=== PATIENT | female | born 1985 | race Caucasian/White ===

== ENCOUNTER 2019-09-07 09:32 | Inpatient (IN) | payer OTHER ==
[~2019-09-07] VITALS: Ht 162.6 cm; Wt 92.0 kg
[2019-09-07 10:43] LABS: BASOPHILS % (AUTO) 0.9 % (0.0-2.0); EOSINOPHILS % (AUTO) 0.1 % (1.0-6.0); HEMATOCRIT 37.3 % (36-46); HEMOGLOBIN 12.1 g/dL (12.0-16.0); LYMPHOCYTES # (AUTO) 1.2 K/uL (1.0-4.8); LYMPHOCYTES % (AUTO) 12.3 % (22.0-44.0); MEAN CORPUSCULAR HEMOGLOBIN 25.9 pg (26.0-34.0); MEAN CORPUSCULAR HGB CONC 32.6 G/dL (31.0-37.0); MEAN CORPUSCULAR VOLUME 79 fL (80-100); MONOCYTES # (AUTO) 0.4 K/uL (0.1-1.0); MONOCYTES % (AUTO) 3.8 % (2.0-9.0); NEUTROPHILS # (AUTO) 8.2 K/uL (1.8-7.7); NEUTROPHILS % (AUTO) 82.9 % (40.0-70.0); PLATELET COUNT (AUTO) 406 K/uL (150-450); RED CELL DISTRIBUTION WIDTH 15.3 % (11.5-14.5)
[2019-09-07 10:53] LABS: ANION GAP 8 mmol/L (8-16); CALCIUM, TOTAL 9.7 mg/dL (8.8-10.5); CARBON DIOXIDE 28 mmol/L (22-29); CHLORIDE 101 mmol/L (98-107); CREATININE 0.73 mg/dL (0.60-1.30); GLOMERULAR FILTR. RATE CALC > 60 mL/min (>60); GLUCOSE,RANDOM 106 mg/dL (70-110); POTASSIUM 3.8 mmol/L (3.5-5.1); SODIUM SERUM 137 mmol/L (136-145); UREA NITROGEN, BLOOD 10 mg/dL (7-18)
[2019-09-07 11:04] LABS: ALANINE AMINOTRANSFERASE 7 U/L (12-78); ALBUMIN 3.6 g/dL (3.4-5.0); ALKALINE PHOSPHATASE 67 U/L (46-116); ASPARTATE AMINOTRANSFERASE 19 U/L (15-37); BILIRUBIN,TOTAL 0.5 mg/dL (0.1-1.0); HCG,QUANTITATIVE < 1 mIU/mL (0-6); TOTAL PROTEIN, SERUM 8.4 g/dL (6.4-8.2)
[2019-09-07] MEDS ORDERED: 0.9% SODIUM CHLORIDE 10 ML SYRINGE IVP PRN (11:30)
[2019-09-07] MEDS ORDERED: ONDANSETRON HCL 4 MG/2 ML VIAL IVP PRN (11:30)
[2019-09-07] MEDS ORDERED: ACETAMINOPHEN 325 MG TABLET PO PRN ×2 (11:30→13:45)
[2019-09-07 12:08] LABS: AMPHET/METH SCREEN,URINE POSITIVE (NEGATIVE); BARBITURATE SCREEN, URINE NEGATIVE (NEGATIVE); BENZODIAZEPINES SCREEN,URINE NEGATIVE (NEGATIVE); CANNABINOID SCREEN,URINE NEGATIVE (NEGATIVE); COCAINE SCREEN,URINE NEGATIVE (NEGATIVE); METHADONE SCREEN, URINE NEGATIVE (NEGATIVE); OPIATE SCREEN,URINE POSITIVE (NEGATIVE)
[2019-09-07 12:09] LABS: PHENCYCLIDINE SCREEN,URINE NEGATIVE (NEGATIVE)
[2019-09-07 12:42] VITALS: BP 100/51
[2019-09-07 12:45] VITALS: BP 100/51
[2019-09-07] MEDS ORDERED: CloNIDine HCL 0.1 MG TABLET PO PRN (13:45)
[2019-09-07] MEDS ORDERED: LOPERAMIDE HCL 2 MG/15 ML SUSPENSION UDCUP PO PRN (13:45)
[2019-09-07] MEDS ORDERED: IBUPROFEN 600 MG TABLET PO PRN (13:45)
[2019-09-07] MEDS ORDERED: HydrOXYzine PAMOATE 50 MG CAPSULE PO PRN (13:45)
[2019-09-07] MEDS ORDERED: LORazepam 1 MG TABLET PO PRN (13:45)
[2019-09-07] MEDS ORDERED: MAG HYDROX/AL HYDROX/SIMETH ES 30 ML SUSPENSION UDCUP PO PRN (13:45)
[2019-09-07] MEDS ORDERED: BACLOFEN 10 MG TABLET PO PRN (13:45)
[2019-09-07] MEDS ORDERED: PROMETHAZINE HCL 25 MG TABLET PO PRN (13:45)
[2019-09-07] MEDS ORDERED: DICYCLOMINE HCL 10 MG CAPSULE PO PRN (13:45)
[2019-09-07] MEDS ORDERED: TraZODone HCL 50 MG TABLET PO PRN (13:45)
[2019-09-07 15:30] VITALS: BP 106/53
[2019-09-07] MEDS: SODIUM CHLORIDE 0.45% 1,000 ML IV SCH (16:07)
[2019-09-07 20:16] VITALS: BP 122/72
[2019-09-07 23:48] VITALS: BP 115/71
[2019-09-08] VITALS (8 sets, daily range): BP systolic 98–152; BP diastolic 45–85
[2019-09-08] MEDS ORDERED: MAG HYDROX/AL HYDROX/SIMETH ES 30 ML SUSPENSION UDCUP PO PRN (04:00)
[2019-09-08] MEDS ORDERED: ZOLPIDEM TARTRATE 5 MG TABLET PO PRN (04:00)
[2019-09-08] MEDS ORDERED: CloNIDine HCL 0.1 MG TABLET PO PRN (04:00)
[2019-09-08] MEDS ORDERED: ONDANSETRON HCL 4 MG/2 ML VIAL IVP PRN (04:00)
[2019-09-08] MEDS ORDERED: ACETAMINOPHEN 325 MG TABLET PO PRN (04:00)
[2019-09-08] MEDS ORDERED: ALBUTEROL SULFATE 2.5 MG/0.5 ML NEB SOLUTION NEB PRN (04:00)
[2019-09-08] MEDS ORDERED: IPRATROPIUM BROMIDE 0.5 MG/2.5 ML NEB SOLUTION NEB PRN (04:00)
[2019-09-08] MEDS ORDERED: BISACODYL 10 MG RECTAL RECTAL SUPPOSITORY PR PRN (04:00)
[2019-09-08] MEDS ORDERED: MAGNESIUM HYDROXIDE SUSPENSION 30 ML UDCUP PO PRN (04:00)
[2019-09-08] MEDS ORDERED: VANCOMYCIN HCL 1 GM/D5% WATER 200 ML IV SCH (04:00)
[2019-09-08] MEDS ORDERED: MORPHINE SULFATE 2 MG/ML SYRINGE IVP PRN (04:00)
[2019-09-08] MEDS ORDERED: VANCOMYCIN HCL 1 GM/D5% WATER 200 ML IV ONE ×2 (05:00→07:00)
[2019-09-08] MEDS: SODIUM CHLORIDE 0.45% 1,000 ML IV SCH ×2 (05:11→16:24)
[2019-09-08] MEDS: CloNIDine HCL 0.1 MG TABLET PO SCH ×4 (06:00→23:02)
[2019-09-08] MEDS: DOCUSATE SODIUM 100 MG CAPSULE PO SCH ×2 (08:07→20:29)
[2019-09-08] MEDS: HEPARIN SODIUM,PORCINE 5,000 UNITS/ML VIAL SQ SCH ×2 (08:07→16:11)
[2019-09-08] MEDS: IBUPROFEN 600 MG TABLET PO PRN ×2 (08:07→20:31)
[2019-09-08 10:39] LABS: BASOPHILS % (AUTO) 0.5 % (0.0-2.0); EOSINOPHILS % (AUTO) 0.9 % (1.0-6.0); HEMATOCRIT 37.9 % (36-46); HEMOGLOBIN 12.5 g/dL (12.0-16.0); LYMPHOCYTES # (AUTO) 1.9 K/uL (1.0-4.8); MEAN CORPUSCULAR HEMOGLOBIN 26.3 pg (26.0-34.0); MEAN CORPUSCULAR VOLUME 80 fL (80-100); MONOCYTES # (AUTO) 0.6 K/uL (0.1-1.0); MONOCYTES % (AUTO) 7.2 % (2.0-9.0); NEUTROPHILS # (AUTO) 5.2 K/uL (1.8-7.7); NEUTROPHILS % (AUTO) 67.4 % (40.0-70.0); PLATELET COUNT (AUTO) 410 K/uL (150-450); RED BLOOD CELL COUNT(AUTO) 4.75 MIL/uL (4.00-5.20); RED CELL DISTRIBUTION WIDTH 15.1 % (11.5-14.5)
[2019-09-08 10:50] LABS: ALANINE AMINOTRANSFERASE 13 U/L (12-78); ALBUMIN 3.3 g/dL (3.4-5.0); ALKALINE PHOSPHATASE 60 U/L (46-116); ANION GAP 6 mmol/L (8-16); ASPARTATE AMINOTRANSFERASE 24 U/L (15-37); BILIRUBIN,TOTAL 0.4 mg/dL (0.1-1.0); CALCIUM, TOTAL 9.3 mg/dL (8.8-10.5); CARBON DIOXIDE 30 mmol/L (22-29); CHLORIDE 102 mmol/L (98-107); CREATININE 0.72 mg/dL (0.60-1.30); GLOMERULAR FILTR. RATE CALC > 60 mL/min (>60); GLUCOSE,RANDOM 98 mg/dL (70-110); POTASSIUM 3.6 mmol/L (3.5-5.1); SODIUM SERUM 138 mmol/L (136-145); TOTAL PROTEIN, SERUM 7.9 g/dL (6.4-8.2); UREA NITROGEN, BLOOD 10 mg/dL (7-18)
[2019-09-08] MEDS: HYDROCODONE/ACETAMINOPHEN 5-325 MG TABLET PO PRN ×2 (12:08→16:14)
[2019-09-08] MEDS ORDERED: VANCOMYCIN HCL 1.5 GM in DEXTROSE 5%-WATER 250 ML IV SCH (15:00)
[2019-09-08] MEDS ORDERED: KETOROLAC TROMETHAMINE 15 MG/ML VIAL IVP PRN (15:00)
[2019-09-08] MEDS: VANCOMYCIN HCL 1.25 GM in DEXTROSE 5%-WATER 250 ML IV SCH ×2 (15:35→23:04)
[2019-09-09] MEDS: HEPARIN SODIUM,PORCINE 5,000 UNITS/ML VIAL SQ SCH ×4 (00:23→23:40)
[2019-09-09] MEDS: SODIUM CHLORIDE 0.45% 1,000 ML IV SCH ×2 (01:09→20:13)
[2019-09-09] MEDS: IBUPROFEN 600 MG TABLET PO PRN ×2 (01:09→20:05)
[2019-09-09 04:00] VITALS: BP 132/83
[2019-09-09] MEDS: VANCOMYCIN HCL 1.25 GM in DEXTROSE 5%-WATER 250 ML IV SCH ×3 (06:35→23:36)
[2019-09-09] MEDS: CloNIDine HCL 0.1 MG TABLET PO SCH ×4 (06:50→21:54)
[2019-09-09 07:17] LABS: ANION GAP 9 mmol/L (8-16); CALCIUM, TOTAL 9.1 mg/dL (8.8-10.5); CARBON DIOXIDE 25 mmol/L (22-29); CHLORIDE 107 mmol/L (98-107); CREATININE 0.69 mg/dL (0.60-1.30); GLOMERULAR FILTR. RATE CALC > 60 mL/min (>60); GLUCOSE,RANDOM 101 mg/dL (70-110); POTASSIUM 4.4 mmol/L (3.5-5.1); SODIUM SERUM 141 mmol/L (136-145); UREA NITROGEN, BLOOD 9 mg/dL (7-18)
[2019-09-09] MEDS: DOCUSATE SODIUM 100 MG CAPSULE PO SCH ×2 (07:53→20:09)
[2019-09-09] MEDS: MULTIVITAMINS WITH MINERALS, THERAPEUTIC TABLET PO SCH (07:54)
[2019-09-09] MEDS: HYDROCODONE/ACETAMINOPHEN 5-325 MG TABLET PO PRN ×2 (07:56→13:59)
[2019-09-09 08:37] VITALS: BP 123/65
[2019-09-09 13:09] VITALS: BP 100/53
[2019-09-09 16:43] VITALS: BP 111/74
[2019-09-09 20:58] VITALS: BP 115/67
[2019-09-10 00:46] VITALS: BP 116/74
[2019-09-10] MEDS: IBUPROFEN 600 MG TABLET PO PRN (01:07)
[2019-09-10] MEDS: HYDROCODONE/ACETAMINOPHEN 5-325 MG TABLET PO PRN (02:18)
[2019-09-10 05:19] VITALS: BP 107/69
[2019-09-10] MEDS: VANCOMYCIN HCL 1.25 GM in DEXTROSE 5%-WATER 250 ML IV SCH (07:05)
[2019-09-10] MEDS: CloNIDine HCL 0.1 MG TABLET PO SCH (07:06)
[2019-09-10 07:29] LABS: ANION GAP 8 mmol/L (8-16); CALCIUM, TOTAL 9.4 mg/dL (8.8-10.5); CARBON DIOXIDE 26 mmol/L (22-29); CHLORIDE 106 mmol/L (98-107); CREATININE 0.76 mg/dL (0.60-1.30); GLOMERULAR FILTR. RATE CALC > 60 mL/min (>60); GLUCOSE,RANDOM 101 mg/dL (70-110); POTASSIUM 4.4 mmol/L (3.5-5.1); SODIUM SERUM 140 mmol/L (136-145); UREA NITROGEN, BLOOD 10 mg/dL (7-18); VANCOMYCIN,RANDOM 23.8 mcg/mL (25.0-50.0)
[2019-09-10 07:44] VITALS: BP_SYST 128; BP_SYST 136; BP_DIAS 71; BP_DIAS 85
[2019-09-10] MEDS: MULTIVITAMINS WITH MINERALS, THERAPEUTIC TABLET PO SCH (08:26)
[2019-09-10] MEDS: DOCUSATE SODIUM 100 MG CAPSULE PO SCH (08:26)
[2019-09-10] MEDS: HEPARIN SODIUM,PORCINE 5,000 UNITS/ML VIAL SQ SCH (08:26)
[2019-09-10] MEDS ORDERED: CLIN300C3 PO (10:26)
[2019-09-10] MEDS ORDERED: CLINDAMYCIN HCL 300 MG CAPSULE PO SCH (16:00)
== END 2019-09-10 11:00 | DRG 603 ==
LOC: EMS 09:35 → 6S 10:58
PROVIDERS: ADMIT Hospitalist; ATTEND Hospitalist
DX: L02.415 Cutaneous abscess of right lower limb (principal); F11.23 Opioid dependence with withdrawal; L03.115 Cellulitis of right lower limb; E66.9 Obesity, unspecified; Z88.0 Allergy status to penicillin; Z68.34 Body mass index [BMI] 34.0-34.9, adult
CPT/HCPCS: G0480; J1644; J2405; J3370; J7060